=== PATIENT | female | born 1970 | race Caucasian/White ===

== ENCOUNTER 2023-09-21 12:26 | Emergency (ER) | payer BC, SELFPAY ==
[2023-09-21 12:28] VITALS: BP 133/86
[2023-09-21 13:08] VITALS: BMI 29.8
--- NOTE | 2023-09-21 13:10 | EDRN ---
the pt walked to P 1 from waiting room, the pt did not appear to have any difficulty walking, the pt is sitting on side of stretcher in the lowest position, side rails up x1, HOB elevated, no s/s of distress, the pt stated to this RN, 'I have
stenosis in my back but the pain has been awful, i have difficulty walking, and my right shoulder hurts and it radiates all the way down my right arm to my right hand, and my back is killing me', awaiting for provider to see the pt, will continue to
monitor the pt closely
[2023-09-21] MEDS: DELTASONE 50 MG PO (15:00)
[2023-09-21] MEDS: TYLENOL 1000 MG PO (15:00)
[2023-09-21] MEDS: MOBIC 15 MG PO (15:19)
--- NOTE | 2023-09-21 15:37 | ED.GENMED ---
History of Present Illness
General
Chief Complaint: Musculo-Skeletal Complaint
Source: patient
Exam Limitations: none
Time Seen by Provider: 09/21/23 13:41
Nursing documentation reviewed up to this point in time: agreed with
Travel History
Have you had any contact with someone who has COVID-19?: No
Do you have any symptoms of coronavirus? Fever > 100 degrees, chills, cough, shortness of breath, sore throat, loss of taste or smell, muscle aches, or headache?: No
History of Present Illness
History of Present Illness:
52-year-old female presenting to the emergency department today with concerns of low back pain left hip pain and right shoulder pain. She has chronic hip and back pain she claims the shoulder pain is new over the past week woke up with it a few
days ago. Pain made worse with movement no chest pain or shortness of breath no nausea vomiting associated. Does have a history of fibromyalgia
Review of Systems
Review of Systems
Allergies reviewed?: Yes
All Other Systems: ROS reviewed and negative except as documented in HPI and ROS
Phy Exam
Physical Exam
Physical Exam:
GENERAL: Alert , in no apparent distress
EYE: pupils equal and reactive
NECK: Supple, no significant adenopathy.
ENT: o/p clr, mmm.
CARDIAC: Regular rate and rhythm .
LUNGS: Clear breath sounds bilaterally, no acute respiratory distress, no wheezes/rales/rhonchi
ABDOMEN: Soft, without focal tenderness, no r/g, no cvat
NEUROLOGICAL: Alert and oriented, no focal neuro deficits
SKIN: Warm and dry, skin intact.
MUSCULOSKELETAL: Discomfort to the right arm with shoulder abduction. Increased pain with hand overhead. No overlying skin changes. No edema, well perfused.
PSYCH: Normal and appropriate interaction.
Course
Orders/Labs/Results
Orders:
Orders
09/21/23 14:36
Acetaminophen [Tylenol] 1,000 mg PO NOW STA
Prednisone [Deltasone] 50 mg PO NOW STA
09/21/23 14:45
Meloxicam [Mobic] 15 mg PO ONCE ONE
09/21/23 15:13
CR Shoulder, Trauma - Right Urgent
Comment:
Reason For Exam: shoulder pain
Vital Signs
Initial and Last Documented VS:
Initial Vital Signs
Temp Pulse Resp BP Pulse Ox
98.1 F 96 18 133/86 97
09/21/23 12:28 09/21/23 12:28 09/21/23 12:28 09/21/23 12:28 09/21/23 12:28
Last Documented Vital Signs
Temp Pulse Resp BP Pulse Ox
98.1 F 77 18 134/83 99
09/21/23 12:28 09/21/23 15:39 09/21/23 15:39 09/21/23 15:39 09/21/23 15:39
MDM/Problems Addressed
MDM/Problems Addressed:
52-year-old female presenting to the emergency department today with concerns of shoulder discomfort. Woke up with discomfort made worse with movement very reproducible with movement and certain positioning. No overlying skin changes somewhat
reproducible to palpation. Seems consistent with mechanical shoulder pain no evidence of referred pain. Plan for close outpatient follow orthopedics otherwise return precautions given.
*Critical Care Note
Total Time (30-74mins, 75-104mins- exclusive of procedures): Not Applicable
ED Attending Note
-
Portions of this chart may have been created with voice recognition software.� Occasional wrong word or��sound alike� substitutions may have occurred due to the inherent limitations of voice recognition software.
Discharge Plan
Departure
Patient Disposition: Home (Routine Discharge)
Date of Disposition: 09/21/23
Time of Disposition: 15:37
Patient with high blood pressure during this ER visit?: No
Condition: Good
Covid-19: Not Applicable
Discharge Problem:
Shoulder pain
Instructions: Muscle and Bone Pain (DC)
Prescriptions:
New
meloxicam 15 mg tablet
15 mg PO DAILY 14 Days Qty: 14 0RF
prednisone 20 mg tablet
40 mg PO DAILY 4 Days Qty: 8 0RF
Referrals:
Christiano Mckeon MD [Active] - Follow up in 5-7 days
Adela Robledo MD [Family Provider] -
Activity Restrictions/Additional Instructions:
You came to the emergency department today for concerns of shoulder discomfort. It is important to slowly increase activity over time and to take the medication prescribed. Please follow closely with orthopedics for further assessment. Return to
the emergency department any worsening, new or concerning symptoms.
Interventions
Interventions:
*Risk Screen - Suicide Last Done: 09/21/23 12:28
*General Assessment Last Done: 09/21/23 12:28
*Neglect/Abuse Screening Last Done: 09/21/23 12:28
ED- Fall Risk Assessment Last Done: 09/21/23 13:08
*ED COVID-19 Vaccine History Last Done: 09/21/23 12:28
*Nursing Disposition Last Done: 09/21/23 15:50
ED-Musculoskeletal Assessment Last Done: 09/21/23 13:08
Discharge Date and Time
Discharge Date/Time: 09/21/23 15:52
[2023-09-21 15:39] VITALS: BP 134/83
== END 2023-09-21 15:52 | disposition home or self-care (01) ==
LOC: EMR 12:26
PROVIDERS: EMERGENCY PHYSICIAN Emergency Medicine; FAMILY PHYSICIAN Family Medicine
DX: M25.511 Pain in right shoulder (principal); M54.50 Low back pain, unspecified; M25.552 Pain in left hip; M19.90 Unspecified osteoarthritis, unspecified site; M79.7 Fibromyalgia; G89.29 Other chronic pain; Z88.0 Allergy status to penicillin
CPT/HCPCS: 99283; 73030

== ENCOUNTER 2025-03-28 10:19 | Emergency (ER) | payer BC, SELFPAY ==
[2025-03-28 10:32] VITALS: BP 138/78
[2025-03-28 10:51] LABS: Hematocrit 41.0 % (37.0-47.0); Hemoglobin 13.7 g/dL (12.0-16.0); Mean Corp Hgb Conc. 33.4 g/dL (33.0-37.0); Mean Corpuscular Volume 90.9 fL (81.0-99.0); Nucleated Red Blood Cells % 0 %; Platelet Count 221 10^3/uL (130-400); Red Cell Dist. Width 12.7 % (11.5-14.5)
[2025-03-28 11:17] LABS: ALT (SGPT) 14 U/L (0-35); AST (SGOT) 15 U/L (14-36); Albumin 4.6 g/dl (3.5-5.0); Alkaline Phosphatase 77 U/L (38-126); Blood Urea Nitrogen 8 mg/dl (7-17); Calcium 9.9 mg/dl (8.4-10.2); Carbon Dioxide 28 mmol/L (22-30); Chloride 107 mmol/L (98-107); Glucose 102 mg/dl (70-99); Lipase 53 U/L (23-300); Potassium 4.2 mmol/L (3.5-5.1); Sodium 140 mmol/L (135-145); Total Protein 6.9 g/dl (6.3-8.2); eGFR > 60.00
[2025-03-28 12:56] VITALS: BMI 26.1
--- NOTE | 2025-03-28 13:41 | ED.GENMED ---
History of Present Illness
General
Chief Complaint: Abdominal Symptoms
Source: patient
Time Seen by Provider: 03/28/25 13:00
History of Present Illness
History of Present Illness:
54-year-old female with past medical history of hypothyroidism, anxiety and depression presenting to the emergency department for evaluation of 3 weeks of persistent nausea, no vomiting but states due to the nausea she has not been able to eat or
drink very much and notes that she has lost approximately 9 pounds during this time. Patient states that over the last year or so she has lost 30 to 40 pounds and her primary care has wanted her to have a upper and lower endoscopy but patient has
had a hard time getting an appointment. Patient notes that she smokes just under a full pack per day and her mother had a history of colon cancer. Being 54 years old the patient has not had either test done previously. Patient does note that she
was recently started on Prozac shortly around when her nausea symptoms started, she had been in contact with her primary care provider about this who thought that it may be related but that the symptoms should have dissipated by now. The patient
states there is no pain associated with this, she has not vomited, no bowel changes, urinary symptoms. Patient is postmenopausal, no concern for .
Past History
Past History
ED Past Medical History: Hypothyroidism and Psychiatric
ED Past Surgical History:
Social History
Tobacco: Smoker
Alcohol: None
Drug: None
Personal:
Living: with family
Review of Systems
Review of Systems
All Other Systems: ROS reviewed and negative except as documented in HPI and ROS
Phy Exam
Physical Exam
Physical Exam:
GENERAL: Alert , in no apparent distress
EYE: clear conjunctiva b/l
HEAD: NCAT
ENT: o/p clr, mmm.
CARDIAC: Regular rate and rhythm .
LUNGS: Clear breath sounds bilaterally, no acute respiratory distress, no wheezes/rales/rhonchi
ABDOMEN: Soft, without focal tenderness, no r/g, no cvat
NEUROLOGICAL: Alert and oriented
SKIN: Warm and dry, skin intact.
MUSCULOSKELETAL: well perfused.
PSYCH: Normal and appropriate interaction.
Scores
Heart Failure Risk
Heart Failure Risk Score: Not Applicable
Heart Score for Chest Pain Patients
STEMI patient?: Not applicable
Withdrawal Assessment of Alcohol
Withdrawal Assessment Completed?: Not applicable
Course
Orders/Labs/Results
Orders:
Orders
03/28/25 10:38
Complete Blood Count/With Diff Urgent
Comprehensive Metabolic Panel Urgent
Lipase Urgent
03/28/25 13:31
0.9% Sodium Chloride 1000 ml [Nss] 1,000 ml IV BOLUS
Metoclopramide [Reglan] 10 mg IV NOW STA
Abnormal Lab Results
03/28/25
10:38
MPV 10.5 H fL
(7.4-10.4)
Glucose 102 H mg/dl
(70-99)
03/28/25 10:38
03/28/25 10:38
Vital Signs
Initial and Last Documented VS:
Initial Vital Signs
Temp Pulse Resp BP Pulse Ox
98.4 F 70 18 138/78 100
03/28/25 10:32 03/28/25 10:32 03/28/25 10:32 03/28/25 10:32 03/28/25 10:32
Last Documented Vital Signs
Temp Pulse Resp BP Pulse Ox
98.4 F 73 15 138/78 82
03/28/25 10:32 03/28/25 15:15 03/28/25 15:15 03/28/25 10:32 03/28/25 15:31
MDM/Problems Addressed
Differential Diagnosis Includes:
Medication side effect/adverse reaction
GERD
Gastritis
Peptic ulcer disease
Pancreatitis
Malignancy
Electrolyte imbalance
Dehydration
Acute kidney injury
MDM/Problems Addressed:
54-year-old female presenting to the emergency department for evaluation of persistent nausea but without any pain or vomiting. Symptoms started almost exactly when the patient was started on Prozac by her primary care provider and this is
certainly one of the most common side effects of patient class. I suspect this is the most likely diagnosis presently although given the patient's reported weight loss both acutely and chronically I do feel she needs likely more urgent evaluation
so will notify the GI [facility] staff to help facilitate a close outpatient follow-up especially given her risk factors with smoking and family history. Labs have been ordered on arrival which are all reassuring. Will treat here with a dose of
Reglan and IV fluids. Anticipate discharge home.
*Pulse Oximetry
SaO2: 99
Oxygen Mode of Delivery: Room air
Patient hypoxic: no
*Critical Care Note
Total Time (30-74mins, 75-104mins- exclusive of procedures): Not Applicable
Patient Management
Escalation/DeEscalation of care consider admission/obs:
Patient with significant improvement following symptoms. I was able to speak to the GI [facility] staff here and they were able to make the patient an appointment for this coming Thursday. Patient will follow-up with GI then. Prescription for
Reglan sent to pharmacy. She will also be in contact with her primary care provider about the Prozac prescription that she recently started and possible side effects from this.
ED Attending Note
-
Portions of this chart may have been created with voice recognition software.� Occasional wrong word or��sound alike� substitutions may have occurred due to the inherent limitations of voice recognition software.
Discharge Plan
Departure
Patient Disposition: Home (Routine Discharge)
Date of Disposition: 03/28/25
Time of Disposition: 15:24
Patient with high blood pressure during this ER visit?: Yes
Discharge Problem:
Nausea
Instructions: Nausea and Vomiting, Adult (DC)
Prescriptions:
New
metoclopramide HCl [Reglan] 10 mg tablet
10 mg PO Q6H PRN (Reason: nausea and vomiting) Qty: 10 0RF
No Action
meloxicam 15 mg tablet
15 mg PO DAILY 14 Days Qty: 14 0RF
prednisone 20 mg tablet
40 mg PO DAILY 4 Days Qty: 8 0RF
Referrals:
Reanna Arriaza DO [Family Provider, Family Practice]
Interventions
Interventions:
*Risk Screen - Suicide Last Done: 03/28/25 10:32
*General Assessment Last Done: 03/28/25 10:32
*Neglect/Abuse Screening Last Done: 03/28/25 10:32
*ED- Fall Risk Assessment Last Done: 03/28/25 12:53
*ED COVID-19 Vaccine History Last Done: 03/28/25 12:55
*Nursing Disposition Last Done: 03/28/25 15:43
[facility] Assessment Last Done: 03/28/25 12:53
Discharge Date and Time
Discharge Date/Time: 03/28/25 15:45
Print Language: [place]
[2025-03-28] MEDS: REGLAN 10 MG IV (14:09)
[2025-03-28] MEDS: NSS 1000 IV (14:14)
== END 2025-03-28 15:45 | disposition home or self-care (01) ==
LOC: EMR 10:19
PROVIDERS: Emergency Medicine; EMERGENCY PHYSICIAN Emergency Medicine; FAMILY PHYSICIAN Family Medicine
DX: R11.0 Nausea (principal); E03.9 Hypothyroidism, unspecified; F17.210 Nicotine dependence, cigarettes, uncomplicated; Z78.0 Asymptomatic menopausal state; Z80.0 Family history of malignant neoplasm of digestive organs
CPT/HCPCS: 96374; 96361; 99284; 80053; 83690; 85025

== ENCOUNTER 2025-04-03 06:31 | Day surgery (SDC) | payer BC, SELFPAY | END 2025-04-03 16:17 | disposition home or self-care (01) | LOC: GI 06:31 | PROVIDERS: ATTENDING PHYSICIAN Internal Medicine Gastroenterology | DX: Z12.11 Encounter for screening for malignant neoplasm of colon (principal); D12.2 Benign neoplasm of ascending colon; K63.5 Polyp of colon; K57.30 Diverticulosis of large intestine without perforation or abscess without bleeding; D12.8 Benign neoplasm of rectum; R11.0 Nausea | CPT/HCPCS: 45385; 45381; 43239; 88305; 88342 ==

== ENCOUNTER → 2025-04-11 14:24 | Outpatient (REF) | payer BC, SELFPAY | LOC: RAD 14:24 | PROVIDERS: ATTENDING PHYSICIAN Internal Medicine Gastroenterology; FAMILY PHYSICIAN Family Medicine | DX: R63.4 Abnormal weight loss (principal) | CPT/HCPCS: 74177; Q9967 ==